=== PATIENT | female | born 1965 | race Native Hawaiian/Other Pacific Islander ===

== ENCOUNTER 2019-12-25 09:19 | Day surgery (SDC) | payer OTHER ==
[~2019-12-25] VITALS: Ht 165.1 cm; Wt 72.6 kg
== END 2019-12-25 13:06 | disposition home or self-care (01) ==
LOC: OR 09:19
PROC: 3E0T3TZ Introduction of Destructive Agent into Peripheral Nerves and Plexi, Percutaneous Approach (ICD-10-PCS; principal; 2019-12-25)
PROC: BR16YZZ Fluoroscopy of Lumbar Facet Joint(s) using Other Contrast (ICD-10-PCS; 2019-12-25)
DX: M47.817 Spondylosis without myelopathy or radiculopathy, lumbosacral region (principal)
CPT/HCPCS: J2001

== ENCOUNTER 2020-06-02 11:47 | Outpatient (CLI) | payer OTHER | END 2020-06-02 21:10 | disposition home or self-care (01) | LOC: EMG 11:47 | PROVIDERS: ATTEND Pain Medicine Interventional Pain Medicine | DX: G60.9 Hereditary and idiopathic neuropathy, unspecified (principal) | CPT/HCPCS: 95860; 95910 ==